=== PATIENT | male | born 1960 | race Caucasian/White ===

== ENCOUNTER 2018-03-20 13:16 | Emergency (ER) | payer OTHER | END 2018-03-20 13:37 | disposition home or self-care (01) | LOC: E/R 13:16 | DX: R21 Rash and other nonspecific skin eruption (principal) | CPT/HCPCS: 99283; Z7502 ==

== ENCOUNTER 2019-01-22 10:43 | Emergency (ER) | payer OTHER ==
[2019-01-22] MEDS: HYDROCODONE/APAP (5/325) TAB PO (12:07)
[2019-01-22] MEDS: KETOROLAC 30 MG INJ IM (12:08)
== END 2019-01-22 12:46 | disposition home or self-care (01) ==
LOC: FTE 10:43
DX: M25.512 Pain in left shoulder (principal)
CPT/HCPCS: 73030; 96372; 99284-25